=== PATIENT | female | born 1975 | race African-American/Black ===

== ENCOUNTER 2018-12-01 13:42 | Emergency (ER) | payer SELFPAY ==
[~2018-12-01] VITALS: Ht 165.1 cm; Wt 129.3 kg
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
[2018-12-01 14:28] VITALS: BP 146/74
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
[2018-12-01] MEDS ORDERED: Methocarbamol 750mg tab ORAL ONE (14:45)
[2018-12-01] MEDS ORDERED: Ketorolac 30mg Inj IM ONE (14:45)
--- NOTE | 2018-12-01 15:07 | NUR ---
ED Nurse Note: Urine has been collected and sent to lab.
[2018-12-01] MEDS ORDERED: IBUPROFEN600 MG ORAL (15:23)
[2018-12-01] MEDS ORDERED: ROBAXIN-750750 MG PO (15:23)
--- NOTE | 2018-12-01 15:47 | NUR ---
ED Nurse Note: Pt going down to CT.
--- NOTE | 2018-12-01 16:04 | NUR ---
ED Nurse Note: Pt came back from CT.
--- NOTE | 2018-12-01 16:51 | Diagnostic Imaging Report ---
Indication: Neck pain. Technique: Continuous helical imaging of the cervical spine was obtained transaxially from the skull base to the upper thoracic spine. 2-D coronal and sagittal reformatted images were obtained. Automatic Exposure Control was utilized. Total Dose length Product (DLP): 824.[address] Dose Index Volume (CTDIvol): 42.88 mGy Comparison: None Findings: There is no evidence of an acute fracture or malalignment. Atlantoaxial alignment appears normal. Height and configuration of the vertebral bodies and intervertebral discs are within normal limits. Uncovertebral joints and facets are unremarkable. There is no soft tissue swelling. Impression: Negative cervical spine CT The exam is limited by motion The CT scanner at [facility] is accredited by the [employer] and the scans are performed using dose optimization techniques as appropriate to a performed exam including Automatic Exposure control.
--- NOTE | 2018-12-01 16:53 | Diagnostic Imaging Report ---
Indication: Back pain Technique: Continuous helical transaxial imaging of the lumbar spine was obtained from the lung bases to the pubic symphysis. No IV contrast was administered. Coronal 2-D reformats were also obtained. Study obtained in a Siemens sensation [address] Total Dose length Product (DLP): 1370.[address] Dose Index Volume (CTDIvol): 44.35 mGy Comparison: None Findings: There is no evidence of an acute fracture or malalignment. Height and configuration of the vertebral bodies and intervertebral discs are within normal limits. There may be a disc protrusion at L5-S1 which is a not for certain. Please correlate clinically. The facets are unremarkable. There is no soft tissue swelling. Exam is limited to some extent by motion. Impression: Negative for acute injury. Motion artifact Question of a disc protrusion at L5-S1 not optimally imaged on this study. The CT scanner at [facility] is accredited by the [employer] and the scans are performed using dose optimization techniques as appropriate to a performed exam including Automatic Exposure control.
[2018-12-01 17:40] VITALS: BP 120/78
--- NOTE | 2018-12-01 17:41 | NUR ---
ED Nurse Note: Discharge instructions given to pt. Answered all questions. Verbalized understanding. No acute distress noted. Left ER w/ steady gait and all of her belongings. ID band removed.
== END 2018-12-01 17:17 | disposition home or self-care (01) ==
LOC: EDBD 13:42 → EMR 17:00
DX: S13.4XXA Sprain of ligaments of cervical spine, initial encounter (principal); V43.52XA Car driver injured in collision with other type car in traffic accident, initial encounter; Y92.89 Other specified places as the place of occurrence of the external cause; M54.5 Low back pain; R51 Headache; Z91.040 Latex allergy status
CPT/HCPCS: 72125; 72131; 81025; 96372; 99284; J1885